=== PATIENT | male | born 1990 ===

== ENCOUNTER 2018-07-03 20:02 | Emergency (ER) | payer SELFPAY ==
[~2018-07-03] VITALS: Ht 172.7 cm; Wt 61.2 kg
--- NOTE | 2018-07-03 20:17 | NUR ---
Pt ambulated in ER with stable gait. 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 Pt states he had mild bleeding on gums and swelling on right side of mouth. Patient denies pain at this time. Safe environment implemented.
--- NOTE | 2018-07-03 20:22 | NUR ---
Dr. Sue at bedside for MSE
--- NOTE | 2018-07-03 20:47 | NUR ---
Patient discharged to home in stable conditon. Written and verbal after care instructions given. Patient verbalizes understanding of instructions.
[2018-07-03 20:49] VITALS: BP 138/70
[2018-07-03 20:59] LABS: CREATININE 0.9 mg/dL (0.6-1.3)
[2018-07-03 21:05] LABS: BILIRUBIN,TOTAL 0.2 mg/dL (0.2-1.0); TOTAL PROTEIN, SERUM 8.4 g/dL (6.4-8.2)
== END 2018-07-03 20:50 | disposition home or self-care (01) ==
LOC: ER 20:06
DX: Z20.5 Contact with and (suspected) exposure to viral hepatitis (principal)
CPT/HCPCS: 36415; 86803; 87536; 87806; A4663